=== PATIENT | female | born 1960 | race American Indian/Alaskan Native ===

== ENCOUNTER 2017-09-29 11:15 | Outpatient (RCR) | payer MEDICAID | END 2017-10-05 | disposition home or self-care (01) | LOC: WSPT | DX: M54.9 Dorsalgia, unspecified (principal); M41.80 Other forms of scoliosis, site unspecified; M25.551 Pain in right hip; M25.512 Pain in left shoulder ==

== ENCOUNTER 2017-10-26 16:28 | Outpatient (RCR) | payer MEDICAID | END 2017-11-04 11:12 | disposition home or self-care (01) | LOC: WSPT 16:28 | DX: M25.512 Pain in left shoulder (principal); M54.9 Dorsalgia, unspecified; M25.551 Pain in right hip; M41.9 Scoliosis, unspecified ==

== ENCOUNTER 2022-01-28 11:15 | Outpatient (RCR) | payer MEDICAID | END 2022-02-03 | disposition home or self-care (01) | LOC: WSPT | DX: G89.4 Chronic pain syndrome (principal); M54.9 Dorsalgia, unspecified ==

== ENCOUNTER → 2022-05-06 | Outpatient (RCR) | payer MEDICARE, MEDICAID | END | disposition home or self-care (01) | LOC: WSPT | DX: G89.4 Chronic pain syndrome (principal) ==

== ENCOUNTER 2022-06-24 13:30 | Outpatient (RCR) | payer MEDICARE, MEDICAID | END 2022-07-04 | disposition home or self-care (01) | LOC: WSPT | DX: G56.23 Lesion of ulnar nerve, bilateral upper limbs (principal) ==

== ENCOUNTER 2022-07-15 13:59 | Outpatient (RCR) | payer MEDICARE, MEDICAID | END 2022-08-03 | disposition home or self-care (01) | LOC: WSPT | DX: G89.4 Chronic pain syndrome (principal) ==

== ENCOUNTER 2023-09-23 20:36 | Emergency (ER) | payer MEDICARE, MEDICAID ==
[~2023-09-23] VITALS: Ht 172.7 cm; Wt 120.5 kg
[2023-09-23 20:41] VITALS: TEMP 98.7
[2023-09-23] MEDS ORDERED: oxyCODONE/Acetaminophen 5-325 MG TAB PO ONE (22:00)
[2023-09-23 22:19] LABS: COLLECTION METHOD CLEAN CATCH
[2023-09-23 22:23] LABS: BASO # 0.1 K/mm3 (0.0-0.2); BASO % 0.6 % (0.0-2.0); EOS # 0.2 K/mm3 (0.0-0.7); EOS % 2.4 % (0.0-4.0); GRAN # 5.2 K/mm3 (1.4-6.5); HEMATOCRIT 42.3 % (37.0-47.0); HEMOGLOBIN 13.8 g/dl (12.5-16.0); LYMPH # 3.1 K/mm3 (1.2-3.4); LYMPH % 32.2 % (20.0-51.0); MEAN CELL VOLUME 89 fl (80.0-100.0); MEAN CORPUSCULAR HEMOGLOBIN 29 pg (27-31); MEAN CORPUSCULAR HGB CONC 33 g/dl (33.0-37.0); MEAN PLATELET VOLUME 13.1 fl (7.4-10.4); MONO # 0.9 K/mm3 (0.1-0.6); MONO % 9.3 % (1.7-9.3); PLATELET COUNT 89 K/mm3 (130-400); RED BLOOD COUNT 4.75 M/mm3 (4.10-5.30); REDCELL DISTRIBUTION WIDTH-CV 15.1 % (11.5-14.5)
[2023-09-23 22:26] LABS: URINE APPEARANCE CLEAR (CLEAR/HAZY); URINE BLOOD NEGATIVE (NEGATIVE); URINE COLOR Dark Yellow (YELLOW); URINE GLUCOSE NEGATIVE (NEGATIVE); URINE KETONE NEGATIVE (NEGATIVE); URINE NITRATE NEGATIVE (NEGATIVE); URINE PROTEIN(semi-quant) 1+ (NEGATIVE)
[2023-09-23 22:40] LABS: ALBUMIN 3.6 g/dL (3.4-4.8); BILIRUBIN,TOTAL 1.4 mg/dL (0.2-1.2); CALCIUM 9.6 mg/dL (8.4-10.2); CREATININE, serum 0.75 mg/dL (0.57-1.11); TOTAL PROTEIN 7.5 g/dl (6.2-8.1)
[2023-09-23] MEDS ORDERED: Apixaban 5 MG TABLET PO ONE ×2 (23:15)
[2023-09-23 23:57] LABS: BASO % 0.4 % (0.0-2.0); EOS # 0.2 K/mm3 (0.0-0.7); EOS % 2.3 % (0.0-4.0); GRAN # 4.9 K/mm3 (1.4-6.5); GRAN % 54.1 % (42.2-75.2); HEMATOCRIT 39.1 % (37.0-47.0); HEMOGLOBIN 13.1 g/dl (12.5-16.0); LYMPH % 33.9 % (20.0-51.0); MEAN CELL VOLUME 88 fl (80.0-100.0); MEAN CORPUSCULAR HEMOGLOBIN 29 pg (27-31); MEAN CORPUSCULAR HGB CONC 34 g/dl (33.0-37.0); MONO # 0.8 K/mm3 (0.1-0.6); MONO % 8.7 % (1.7-9.3); RED BLOOD COUNT 4.47 M/mm3 (4.10-5.30); REDCELL DISTRIBUTION WIDTH-CV 14.8 % (11.5-14.5)
[2023-09-23 23:58] LABS: PLATELET COUNT 80 K/mm3 (130-400)
[2023-09-24] MEDS ORDERED: Enoxaparin 120 MG/0.8 ML SYRINGE SQ ONE (00:15)
[2023-09-24 00:22] VITALS: BP 136/80; PULSE 90
== END 2023-09-24 00:25 | disposition home or self-care (01) ==
LOC: COL.ER 20:36
PROVIDERS: Nurse Practitioner
DX: M79.604 Pain in right leg (principal); G89.29 Other chronic pain; M54.6 Pain in thoracic spine; M54.50 Low back pain, unspecified; F17.200 Nicotine dependence, unspecified, uncomplicated
CPT/HCPCS: J1650

== ENCOUNTER → 2023-11-19 | Outpatient (CLI) | payer MEDICARE, MEDICAID ==
[~2023-11-19] MED LIST: Iohexol 300 - 10 ML VIAL ONE; Lidocaine PF 2% (20 MG/ML) 2 ML VIAL ONE
== END ==
LOC: MHCPAIN 10:20
DX: M54.16 Radiculopathy, lumbar region (principal); M54.6 Pain in thoracic spine
CPT/HCPCS: J1100; Q9967

== ENCOUNTER → 2024-01-08 | Outpatient (CLI) | payer MEDICARE, MEDICAID | LOC: MHCPAIN 10:48 | DX: M54.16 Radiculopathy, lumbar region (principal); M47.816 Spondylosis without myelopathy or radiculopathy, lumbar region; M54.50 Low back pain, unspecified; M54.6 Pain in thoracic spine; M48.07 Spinal stenosis, lumbosacral region; M41.84 Other forms of scoliosis, thoracic region | CPT/HCPCS: G0463 ==

== ENCOUNTER → 2024-01-18 | Outpatient (CLI) | payer MEDICARE, MEDICAID | LOC: MHCPAIN 12:51 | DX: M54.16 Radiculopathy, lumbar region (principal); M41.86 Other forms of scoliosis, lumbar region; G89.29 Other chronic pain; M48.061 Spinal stenosis, lumbar region without neurogenic claudication | CPT/HCPCS: G0463 ==